=== PATIENT | male | born 1960 | race Two or more races ===

== ENCOUNTER 2017-09-02 17:54 | Emergency (ER) | payer OTHER ==
[~2017-09-02] VITALS: Ht 165.1 cm; Wt 77.1 kg
[2017-09-02 18:30] VITALS: BP 138/96
[2017-09-02] MEDS ORDERED: KETOROLAC TROMETH 60MG/2ML VIAL IM ONE (21:15)
[2017-09-02] MEDS ORDERED: methylPREDNISolone SOD SUCC 125 MG/2 ML VL IM ONE (21:15)
== END 2017-09-02 21:52 | disposition home or self-care (01) ==
LOC: ER 18:00
DX: M54.31 Sciatica, right side (principal); M54.10 Radiculopathy, site unspecified; Z90.49 Acquired absence of other specified parts of digestive tract
CPT/HCPCS: 72131; 96372; 99284; J1885; J2930

== ENCOUNTER 2017-09-19 14:32 | Emergency (ER) | payer OTHER ==
[~2017-09-19] VITALS: Ht 165.1 cm; Wt 77.1 kg
[2017-09-19 15:13] VITALS: BP 133/91
[2017-09-19] MEDS ORDERED: diphenhdrAMINE HCL 50 MG/1 ML VL IM ONE (15:30)
[2017-09-19] MEDS ORDERED: KETOROLAC TROMETH 60MG/2ML VIAL IM ONE (15:30)
== END 2017-09-19 17:41 | disposition home or self-care (01) ==
LOC: ER 14:32
DX: M48.061 Spinal stenosis, lumbar region without neurogenic claudication (principal); G89.29 Other chronic pain; M54.5 Low back pain
CPT/HCPCS: 96372; 99284; J1200; J1885